=== PATIENT | male | born 1985 | race Hispanic/Latino ===

== ENCOUNTER → 2020-02-10 | Outpatient (CLI) | payer SELFPAY ==
--- NOTE | 2020-02-10 12:04 | Diagnostic Imaging Report ---
EXAM: Focused Soft Tissue Ultrasound Evaluation of right lower leg INDICATION: ^LACERATION WITHOUT FOREIGN BODY COMPARISON: None TECHNIQUE: Redd scale, color Doppler images of the right lower leg as well as the left lower leg for comparison were obtained. FINDINGS: Sonographic images of the posterior lateral right lower leg in the area of clinical interest/prior trauma demonstrates a 4 x 3 x 3 mm hypoechoic oval structure without associated vascularity. Findings may reflect a resolving hematoma versus a granuloma or scarring. No focal fluid collection. IMPRESSION: 4 x 3 x 3 mm hypoechoic oval structure without associated vascularity may reflect a resolving hematoma versus a granuloma or scarring in the setting of prior laceration. No associated fluid collection. Signed by: Shalom Lynch MD on 02/10/2020 12:01 PM
== END ==
LOC: US 10:12
PROVIDERS: ATTEND Family Medicine
DX: S81.811D Laceration without foreign body, right lower leg, subsequent encounter (principal)
CPT/HCPCS: 76882